=== PATIENT | male | born 2005 | race Caucasian/White ===

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

== ENCOUNTER 2023-10-06 13:07 | Outpatient (CLI) | payer MEDICAID, OTHER ==
--- NOTE | 2023-10-06 21:09 | XRAY Report ---
PROCEDURE: Knee 3 View LT INDICATIONS: LEFT KNEE PAIN TECHNIQUE: 3 views of the knee was obtained. COMPARISON: None FINDINGS: Bones: No fractures or dislocations. No suspicious bony lesions. Incidental bipartite patella Soft tissues: Small knee joint effusion. No suspicious soft tissue calcifications or masses. IMPRESSION: Small joint effusion. No fracture Reviewed by: Sushil Caputo MD on 10/06/2023 8:07 PM [place] Approved by: Sushil Caputo MD on 10/06/2023 8:07 PM [place] Station ID: [id number]
== END 2023-10-06 23:59 | disposition home or self-care (01) ==
LOC: DI.N 13:07
PROVIDERS: ATTEND Physician Assistant Medical
DX: M25.562 Pain in left knee (principal); M25.462 Effusion, left knee